=== PATIENT | female | born 1975 | race Caucasian/White ===

== ENCOUNTER 2017-05-27 00:21 | Emergency (ER) | payer OTHER ==
[2017-05-27] MEDS ORDERED: TORAdol 30 mg Injection IM ONE (00:29)
[2017-05-27] MEDS ORDERED: Vistaril 50 MG/ML IM ONE ×2 (00:30→00:34)
[2017-05-27] MEDS ORDERED: TORAdol 30 mg Injection ONE (00:34)
--- NOTE | 2017-05-27 00:51 | ERPHSYRPT ---
- History of Present Illness Time Seen by Provider: 05/27/17 00:23 Source: patient Patient Subjective Stated Complaint: PT REPORTS PICKING UP A BAG OF TRASH 2 DAYS AGO-REPORTS SEVERE PAIN IN LOW BACK-PAIN RADIATING TO RIGHT LEG-REPORTS CHRONIC BACK PROBLEMS Triage Nursing Assessment: PT PINK WARM ET [id number] EASY-NO BRUISING OR ABRASIONS NOTED TO BACK-PT DENIES FALL-REPROTS VOMITING FROM THE PAIN Physician History: CC: back pain hx: 41 y/o patient of Dr Collins with prior low back suergery remotely per Dr Dunn. She h twisted her low back lifting a trash bag two days ago. Took robaxin a few hours ago but pain worse and severe so came to ER after work at the [employer]. Allergic to flexeril. She has chronic tingling in legs. Worse low back pain. Stopped her norco a few months ago herself. Has used ibuprofen. No abd pain. Normal urination. Pain severe and worse with movement. No fever. No hx of cancer. Timing/Duration: day(s) (2) Back Pain Location: lumbar spine Severity of Pain-Max: severe Severity of Pain-Current: severe Allergies/Adverse Reactions: amoxicillin trihydrate [From Augmentin] Allergy (Verified 05/27/17 00:31) cefaclor [From Ceclor] Allergy (Verified 05/27/17 00:31) cyclobenzaprine HCl [From Flexeril] Allergy (Verified 05/27/17 00:31) escitalopram oxalate [From Lexapro] Allergy (Verified 05/27/17 00:31) fluoxetine HCl [From Prozac] Allergy (Verified 05/27/17 00:31) levofloxacin [From Levaquin] Allergy (Verified 05/27/17 00:31) potassium clavula *RETIRED-01/09/13 [From Augmentin] Allergy (Verified 05/27/17 00:31) Home Medications: AMITRIPTYLINE HCL 50 mg Tab [AMITRIPTYLINE HCL 50 mg Tablet] 50 mg PO HS [History] Fluticasone Propionate [Flonase NASAL] 16 gm NS HS 10/06/16 [History] Gabapentin 600 mg PO TID 10/06/16 [History] Hydrochlorothiazide 12.5 mg PO HS 10/06/16 [History] Lamotrigine 25 mg PO BID 10/06/16 [History] Methocarbamol [Robaxin-750] 750 mg PO .UNKNOWN 10/06/16 [History] Potassium Chloride 10 Meq Tab* [Klor Con 10 MEQ] 10 meq PO HS 10/06/16 [ History] Ropinirole HCl 1 mg PO HS 10/06/16 [History] Hx Tetanus, Diphtheria Vaccination/Date Given: Yes Hx Influenza Vaccination/Date Given: No Hx Pneumococcal Vaccination/Date Given: No Immunizations Up to Date: Yes - Review of Systems Constitutional: No Fever Eyes: No Symptoms Ears, Nose, & Throat: No Symptoms Respiratory: No Dyspnea Cardiac: No Chest Pain Abdominal/Gastrointestinal: Vomiting (X1 due to pain), No Abdominal Pain Genitourinary Symptoms: No Dysuria, No Musculoskeletal: Back Pain Neurological: Parasthesia (legs chronic), No Focal Weakness All Other Systems: Reviewed and Negative - Past Medical History Pertinent Past Medical History: Yes Neurological History: No Pertinent History ENT History: No Pertinent History Cardiac History: No Pertinent History Respiratory History: No Pertinent History Endocrine Medical History: No Pertinent History Musculoskeletal History: Other Psycho-Social History: Depression Female Reproductive Disorders: Other Other Medical History: BACK SURG - Past Surgical History Past Surgical History: Yes Neuro Surgical History: No Pertinent History Cardiac: No Pertinent History Respiratory: No Pertinent History Gastrointestinal: Cholecystectomy Genitourinary: No Pertinent History Musculoskeletal: Other Female Surgical History: Tubal Ligation Other Surgical History: BACK SURGERY - Social History Smoking Status: Never smoker Exposure to second hand smoke: No Drug Use: none Patient Lives Alone: No - Female History Hx Last Menstrual Period: ABLASION Hx Now: No - Nursing Vital Signs Nursing Vital Signs: Initial Vital Signs Temperature 97.9 F 05/27/17 00:24 Pulse Rate 90 05/27/17 00:24 Respiratory Rate 20 05/27/17 00:24 Blood Pressure 121/89 05/27/17 00:24 O2 Sat by Pulse Oximetry 98 05/27/17 00:24 Pain Scale Pain Intensity 8 - Physical Exam General Appearance: alert Eye Exam: PERRL/EOMI Ears, Nose, Throat Exam: moist mucous membranes Neck Exam: normal inspection, supple Respiratory Exam: normal breath sounds Cardiovascular Exam: regular rate/rhythm Gastrointestinal Exam: soft, No tenderness, No distention Back Exam: normal inspection (healed scar. Diffuse discomfort.) Extremity Exam: normal inspection, normal range of motion Neurologic Exam: alert, oriented x 3, cooperative, sensation nml, No motor deficits Skin Exam: warm, dry, No rash SpO2 Interpretation: normal SpO2: 98 Oxygen Delivery: Room Air - Course Nursing assessment & vital signs reviewed: Yes Ordered Tests: Medication Summary Discontinued Medications Generic Name Dose Route Start Last Admin Trade Name Freq PRN Reason Stop Dose Admin Hydroxyzine HCl 50 mg 05/27/17 00:30 05/27/17 00:37 Vistaril 50 Mg/Ml IM 05/27/17 00:31 50 mg STAT ONE Administration Hydroxyzine HCl Confirm 05/27/17 00:34 Vistaril 50 Mg/Ml Administered 05/27/17 00:35 Dose 50 mg IM .STK-MED ONE Ketorolac Tromethamine 60 mg 05/27/17 00:29 05/27/17 00:35 Toradol 30 Mg Injection IM 05/27/17 00:30 60 mg STAT ONE Administration Ketorolac Tromethamine Confirm 05/27/17 00:34 Toradol 30 Mg Injection Administered 05/27/17 00:35 Dose 60 mg .ROUTE .STK-MED ONE - Progress Progress Note: 05/27/17 00:49 Toradol and vistaril given here. She has robaxin at home. Will change to naproxen instead of motrin. Advised follow up. Counseled pt/family regarding: diagnosis, need for follow-up - Departure Time of Disposition: 00:49 Departure Disposition: Home Clinical Impression: Low back sprain Qualifiers: Encounter type: initial encounter Qualified Code(s): S33.9XXA - Sprain of unspecified parts of lumbar spine and pelvis, initial encounter Condition: Stable Critical Care Time: No Referrals: BASSAM COLLINS MD [Primary Care Provider] - Instructions: Low Back Pain Additional Instructions: BACK INJURY 1. May apply moist heat frequently for relief of pain. Take care not to burn the skin. Do not use heat for more than 30 minutes at a time. 2. Try to sleep on a firm bed, flat on your back. 3. If no improvement is noticed in 2-3 days, follow up with your family physician. 4. If you notice any numbness, tingling, weakness, or problems with your bowel or bladder, you should call your family physician or return to the emergency department. Stop ibuprofen and start naproxen in AM. Continue your robaxin. No driving tonite. Follow up Monday with Dr Collins. Prescriptions: Naproxen 500 mg [Naprosyn 500 MG] 500 mg PO BID #20 tablet
[2017-05-27 01:14] VITALS: BP 113/69; PULSE 77; O2SAT 100
== END 2017-05-27 01:15 | disposition home or self-care (01) ==
LOC: ED 00:21
DX: S33.9XXA Sprain of unspecified parts of lumbar spine and pelvis, initial encounter (principal); X50.0XXA Overexertion from strenuous movement or load, initial encounter; Y92.524 Gas station as the place of occurrence of the external cause; Y99.0 Civilian activity done for income or pay
CPT/HCPCS: 96372; 99284; J1885; J3410

== ENCOUNTER 2019-03-26 12:49 | Emergency (ER) | payer OTHER ==
[2019-03-26] MEDS ORDERED: TORAdol 30 mg Injection IM ONE (13:24)
--- NOTE | 2019-03-26 13:27 | ERPHSYRPT ---
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 states her right arm is tingling Physician History: 43-year-old white female arrives with complaint of pain posterior neck worse with movement symptoms since Monday, 4 days ago. Patient states she does not remember any definite injury she states she hurts when she moves and turns her neck she states she feels popping in her neck at times. Past medical history includes degenerative arthritis, chronic back pain Past surgical history includes cholecystectomy, tubal ligation, back surgery Timing/Duration: day(s) (4 days) Severity: moderate Modifying Factors: Improves With: movement Associated Symptoms: No nausea, No vomiting, No abdominal pain, No shortness of breath, No heartburn, No diaphoresis, No cough, No chills, No chest pain, No fever, No headaches, No loss of appetite, No malaise, No rash, No syncope, No seizure, No weakness Allergies/Adverse Reactions: amoxicillin [From Augmentin] Allergy (Verified 03/26/19 13:12) cefaclor [From Ceclor] Allergy (Verified 03/26/19 13:12) clavulanic acid [From Augmentin] Allergy (Verified 03/26/19 13:12) cyclobenzaprine [From Flexeril] Allergy (Verified 03/26/19 13:12) levofloxacin [From Levaquin] Allergy (Verified 03/26/19 13:12) fluoxetine [From Prozac] Adverse Reaction (Verified 03/26/19 13:12) Home Medications: Amitriptyline HCl 75 mg DAILY 03/26/19 [History] Gabapentin 300 mg TID 03/26/19 [History] Ropinirole HCl 2 mg DAILY 03/26/19 [History] lamoTRIgine [Lamotrigine] 25 mg DAILY 03/26/19 [History] Hx Tetanus, Diphtheria Vaccination/Date Given: No Hx Influenza Vaccination/Date Given: No Hx Pneumococcal Vaccination/Date Given: No Immunizations Up to Date: Yes - Review of Systems Constitutional: No Fever, No Chills Eyes: No Symptoms Ears, Nose, & Throat: No Symptoms Respiratory: No Cough, No Dyspnea Cardiac: No Chest Pain, No Edema, No Syncope Abdominal/Gastrointestinal: No Abdominal Pain, No Nausea, No Vomiting, No Diarrhea Genitourinary Symptoms: No Dysuria Musculoskeletal: Neck Pain (posterior neck pain worse with moving feels like she has popping in her neck) Skin: No Rash Neurological: No Dizziness, No Focal Weakness, No Sensory Changes Psychological: No Symptoms Endocrine: No Symptoms All Other Systems: Reviewed and Negative - Past Medical History Pertinent Past Medical History: Yes Musculoskeletal History: Arthritis, Degenerative Disk Disease Other Medical History: chronic adriana pain - Past Surgical History Past Surgical History: Yes Gastrointestinal: Cholecystectomy Musculoskeletal: Other Female Surgical History: Tubal Ligation Other Surgical History: back surgery - Social History Smoking Status: Never smoker Exposure to second hand smoke: No Drug Use: none Patient Lives Alone: No - Female History Hx Last Menstrual Period: irregular Hx Now: No - Nursing Vital Signs Nursing Vital Signs: Initial Vital Signs Temperature 97 F 03/26/19 13:05 Pulse Rate 93 H 03/26/19 13:05 Respiratory Rate 16 03/26/19 13:05 Blood Pressure 117/86 03/26/19 13:05 O2 Sat by Pulse Oximetry 98 03/26/19 13:05 Pain Scale Pain Intensity 5 - Physical Exam General Appearance: mild distress, alert Eye Exam: PERRL/EOMI, eyes nml inspection Neck Exam: other (neck tender with palpation posteriorly, ddecreased range of motion neck secondary to pain) Respiratory Exam: normal breath sounds, lungs clear, No respiratory distress Cardiovascular Exam: regular rate/rhythm, normal heart sounds, normal peripheral pulses, capillary refill <2 sec Gastrointestinal/Abdomen Exam: soft, normal bowel sounds, No tenderness, No mass Back Exam: normal inspection, normal range of motion, No CVA tenderness, No vertebral tenderness Extremity Exam: normal inspection, normal range of motion, pelvis stable Neurologic Exam: alert, oriented x 3, cooperative, flatwork washer II-XII nml as tested, normal mood/affect, nml cerebellar function, nml station & gait, sensation nml, No motor deficits Skin Exam: normal color, warm, dry, No rash SpO2 Interpretation: normal (98I'm not worried about her pulses long as her pressure is good%) SpO2: 98 - Course Nursing assessment & vital signs reviewed: Yes - Radiology Exams C-Spine X-ray Interpretation: Discussed w/ radiologist (cervical spine x-ray:impression : 1. No acute cervical spine fracture, AP subluxation, or prevertebral soft tissue swelling is seen. 2. Mild to moderate posterior vertebral endplate spurring at both C5-C6 and C6-C7. Otherwise a cervical airspace Heights appear fairly maintained. No other significant plain film cervical spine abnormality is seen.) Ordered Tests: Active Orders 24 hr Category Date Time Status Cervical Collar Application STAT Care 03/26/19 14:58 Active CERVICAL SPINE (2 OR 3 VIEW) Stat Exams 03/26/19 13:24 Completed Medication Summary Discontinued Medications Generic Name Dose Route Start Last Admin Trade Name Freq PRN Reason Stop Dose Admin Ketorolac Tromethamine 60 mg 03/26/19 13:24 03/26/19 13:39 Toradol 30 Mg Injection IM 03/26/19 13:25 60 mg STAT ONE Administration Ketorolac Tromethamine Confirm 03/26/19 13:38 Toradol 30 Mg Injection Administered 03/26/19 13:39 Dose 60 mg .ROUTE .STK-MED ONE - Progress Progress: improved Progress Note: 03/26/19 14:59 Patient states she has minimal improvement with Toradol. Patient appears to be stable. Patient is allergic to cyclobenzaprine. C-spine impression 1. No acute cervical spine fracture, AP subluxation, or prevertebral soft tissue swelling is seen. 2. There is mild to moderate posterior vertebral endplate spurring at both C5-C6 and C6-C7 otherwise a cervical airspace his appeared fairly well maintained. 3. No other significant plain films cervical spine abnormality is seen. Will go ahead and write for Naprosyn for this patient 500 mg twice a day place patient on a soft collar to help prevent spasms. Patient states that she will followup with her neurologist. Will give patient off today and tomorrow from work. - Departure Departure Disposition: Home Clinical Impression: Neck pain Cervical strain Qualifiers: Encounter type: initial encounter Qualified Code(s): S16.1XXA - Strain of muscle, fascia and tendon at neck level, initial encounter Condition: Fair Critical Care Time: No Referrals: KYLE BIRMINGHAM MD [Primary Care Provider] - Instructions: Cervical Muscle Strain (DC) Additional Instructions: Return home. Naprosyn 500 mg orally twice a day with food as needed for pain. Wear soft collar 48-72 hours. Followup with your family doctor or neurologist. Return for acute distress or for severe symptoms. Prescriptions: Naproxen 500 mg [Naprosyn 500 MG] 500 mg PO BIDPRN PRN #10 tablet PRN Reason: Pain
[2019-03-26] MEDS ORDERED: TORAdol 30 mg Injection ONE (13:38)
--- NOTE | 2019-03-26 14:53 | XRAY ---
Exam: 3 view cervical spine series from 03/26/2019. Comparison: None. Indication: 43-year-old female with neck pain. Technique: 2 lateral images, an AP image, and 2 open-mouth odontoid views were obtained. Findings: I see no acute fracture, AP subluxation, or prevertebral soft tissue swelling. The cervical interspace heights are fairly well-maintained. I see mild to moderate posterior vertebral endplate spurring at C5-C6 and C6-C7. The facet joints appear unremarkable. The uncovertebral joints reveal no significant abnormality. No cervical ribs are identified. There is slight convexity of the upper thoracic spine toward the right centered at T1-T2 on the AP image. No other focal bone lesion is seen. Impression: 1. No acute cervical spine fracture, AP subluxation, or prevertebral soft tissue swelling is seen. 2. There is mild to moderate posterior vertebral endplate spurring at both C5-C6 and C6-C7. Otherwise, the cervical interspace heights appear fairly well-maintained. 3. No other significant plain films cervical spine abnormality is seen.
[2019-03-26 15:06] VITALS: BP 113/73; PULSE 65; O2SAT 97
== END 2019-03-26 15:12 | disposition home or self-care (01) ==
LOC: MERGE 12:49 → ED 12:49
DX: M54.2 Cervicalgia (principal); S16.1XXA Strain of muscle, fascia and tendon at neck level, initial encounter
CPT/HCPCS: 72040; 96372; 99284; J1885; L0120

== ENCOUNTER 2020-12-23 13:13 | Day surgery (SDC) | payer OTHER ==
[2020-12-23] MEDS ORDERED: Xylocaine 1% Vial 30 ML PF IJ ONE (13:14)
[2020-12-23] MEDS ORDERED: Depo-Medrol 40 MG/ML IM ONE (13:14)
[2020-12-23] MEDS ORDERED: Sodium Chloride 0.9(Preservative Free) 10 ML IJ ONE (13:14)
[2020-12-23] MEDS ORDERED: Lactated Ringers 1,000 ML IV ONE (13:54)
[2020-12-23] MEDS ORDERED: Ketamine HCl 50 MG/ML ONE (15:10)
[2020-12-23] MEDS ORDERED: DIPRIVAN 200 MG/20 ML IV ONE (15:10)
--- NOTE | 2020-12-23 16:24 | XRAY ---
Indication: Lumbar UTE. Intraoperative fluoroscopy provided for 24 seconds. 2 digital spot images submitted for interpretation demonstrates midline posterior needle tip just posterior to the L4-L5 interspace. Small amount of contrast injected for needle tip placement. Correlate with intraoperative findings/report.
--- NOTE | 2020-12-23 16:41 | XRAY ---
24 seconds fluoroscopy time in surgery for lumbar UTE.
== END 2020-12-23 15:41 | disposition home or self-care (01) ==
LOC: SDC-PAIN 13:13
PROVIDERS: ATTEND Psychiatry & Neurology Pain Medicine
DX: M54.16 Radiculopathy, lumbar region (principal); F41.8 Other specified anxiety disorders; Z79.899 Other long term (current) drug therapy
CPT/HCPCS: 62323; 72100; 77003; 84703; J1030; J2001; J2704; Q9966

== ENCOUNTER 2021-05-12 10:48 | Day surgery (SDC) | payer OTHER ==
[2021-05-12] MEDS ORDERED: Depo-Medrol 40 MG/ML IM ONE (10:49)
[2021-05-12] MEDS ORDERED: Sodium Chloride 0.9(Preservative Free) 10 ML IJ ONE (10:49)
[2021-05-12] MEDS ORDERED: Xylocaine 1% Vial 30 ML PF IJ ONE (10:49)
[2021-05-12] MEDS ORDERED: DIPRIVAN 200 MG/20 ML IV ONE ×3 (12:25→12:43)
[2021-05-12] MEDS ORDERED: Lactated Ringers 1,000 ML IV ONE (14:06)
--- NOTE | 2021-05-12 15:00 | XRAY ---
Indication: Lumbar UTE. Intraoperative fluoroscopy provided for 35 seconds. Single lateral digital spot image submitted for interpretation demonstrates posterior needle tip projecting posterior to L4-L5 interspace. Small amount of contrast injected for needle tip placement. Correlate with intraoperative findings/report.
--- NOTE | 2021-05-12 15:03 | XRAY ---
35 seconds fluoroscopy time in surgery for lumbar UTE.
== END 2021-05-12 13:00 | disposition home or self-care (01) ==
LOC: SDC-PAIN 10:48
PROVIDERS: ATTEND Psychiatry & Neurology Pain Medicine
DX: M54.16 Radiculopathy, lumbar region (principal); Z79.899 Other long term (current) drug therapy
CPT/HCPCS: 62323; 72100; 77003; 84703; J1030; J2001; J2704; Q9966

== ENCOUNTER 2021-06-16 12:39 | Day surgery (SDC) | payer OTHER ==
[2021-06-16] MEDS ORDERED: Depo-Medrol 80 MG/ML IM ONE (12:40)
[2021-06-16] MEDS ORDERED: LIDOCAINE HCL 2% 100 MG/5 ML IJ ONE (12:40)
--- NOTE | 2021-06-16 16:31 | XRAY ---
Indication: Bilateral L4-S1 MBB. Intraoperative fluoroscopy provided for 29 seconds. Single digital spot image submitted for interpretation demonstrates posterior needle tips projecting over the expected left and right L4-S1 nerve roots. Correlate with intraoperative findings/report.
--- NOTE | 2021-06-16 16:31 | XRAY ---
29 seconds of fluoroscopy was used in surgery for a bilateral L4-S1 MBB.
[2021-06-16] MEDS ORDERED: Lactated Ringers 1,000 ML IV ONE (17:28)
== END 2021-06-16 14:46 | disposition home or self-care (01) ==
LOC: SDC-PAIN 12:39
PROVIDERS: ATTEND Psychiatry & Neurology Pain Medicine
DX: M47.816 Spondylosis without myelopathy or radiculopathy, lumbar region (principal); Z79.899 Other long term (current) drug therapy
CPT/HCPCS: 64493; 64494; 72020; 77002; 84703; J1040

== ENCOUNTER 2021-08-18 15:18 | Day surgery (SDC) | payer OTHER ==
[2021-08-18] MEDS ORDERED: Depo-Medrol 40 MG/ML IM ONE (15:19)
[2021-08-18] MEDS ORDERED: BUPIVACAINE 0.5% VIAL IJ ONE (15:19)
[2021-08-18] MEDS ORDERED: Lactated Ringers 1,000 ML IV ONE (16:08)
[2021-08-18] MEDS ORDERED: DIPRIVAN 200 MG/20 ML IV ONE ×2 (17:09→17:18)
--- NOTE | 2021-08-18 22:04 | XRAY ---
Indication: Bilateral L4-S1 MBB. Intraoperative fluoroscopy provided for 43 seconds. Single digital spot image submitted for interpretation demonstrates posterior needle tips projecting over the expected left and right L4-S1 nerve roots. Correlate with intraoperative findings/report.
--- NOTE | 2021-08-19 09:03 | XRAY ---
43 seconds fluoroscopy time in surgery for bilateral L4-S1 MBB.
== END 2021-08-18 17:40 | disposition home or self-care (01) ==
LOC: SDC-PAIN 15:18
PROVIDERS: ATTEND Psychiatry & Neurology Pain Medicine
DX: M47.816 Spondylosis without myelopathy or radiculopathy, lumbar region (principal); F41.9 Anxiety disorder, unspecified; F32.9 Major depressive disorder, single episode, unspecified; Z79.899 Other long term (current) drug therapy
CPT/HCPCS: 64493; 64494; 72020; 77002; 84703; J1030; J2704

== ENCOUNTER 2021-09-02 12:15 | Day surgery (SDC) | payer OTHER ==
[2021-09-02] MEDS ORDERED: Xylocaine 1% Vial 30 ML PF IJ ONE (12:16)
[2021-09-02] MEDS ORDERED: BUPIVACAINE 0.5% VIAL IJ ONE (12:16)
[2021-09-02] MEDS ORDERED: Depo-Medrol 40 MG/ML IM ONE (12:16)
[2021-09-02] MEDS ORDERED: DIPRIVAN 200 MG/20 ML IV ONE ×2 (14:09→14:15)
[2021-09-02] MEDS ORDERED: Ketamine HCl 50 MG/ML ONE (14:15)
[2021-09-02] MEDS ORDERED: Lactated Ringers 1,000 ML IV ONE ×2 (14:24→15:20)
--- NOTE | 2021-09-02 16:32 | XRAY ---
Indication: Left L4-S1 RFA. Intraoperative fluoroscopy provided for 46 seconds. 3 digital spot image submitted for interpretation demonstrates posterior needle tips projecting over the expected left L4-S1 nerve roots. Correlate with intraoperative findings/report.
--- NOTE | 2021-09-02 16:39 | XRAY ---
46 seconds fluoroscopy time in surgery for left L4-S1 RFA.
== END 2021-09-02 14:45 | disposition home or self-care (01) ==
LOC: SDC-PAIN 12:15
PROVIDERS: ATTEND Psychiatry & Neurology Pain Medicine
DX: M47.817 Spondylosis without myelopathy or radiculopathy, lumbosacral region (principal); Z79.899 Other long term (current) drug therapy
CPT/HCPCS: 64635; 64636; 72100; 77002; 84703; J1030; J2001; J2704

== ENCOUNTER 2021-09-08 08:48 | Day surgery (SDC) | payer OTHER ==
[2021-09-08] MEDS ORDERED: Xylocaine 1% Vial 30 ML PF IJ ONE (08:49)
[2021-09-08] MEDS ORDERED: BUPIVACAINE 0.5% VIAL IJ ONE (08:49)
[2021-09-08] MEDS ORDERED: Depo-Medrol 40 MG/ML IM ONE (08:49)
[2021-09-08] MEDS ORDERED: Lactated Ringers 1,000 ML IV ONE (09:22)
[2021-09-08] MEDS ORDERED: DIPRIVAN 200 MG/20 ML IV ONE ×3 (09:44→09:55)
[2021-09-08] MEDS ORDERED: Ketamine HCl 50 MG/ML ONE (09:44)
--- NOTE | 2021-09-08 10:40 | XRAY ---
Indication: Right L4-S1 RFA. Intraoperative fluoroscopy provided for 45 seconds. 3 digital spot image submitted for interpretation demonstrates posterior needle tips projecting over the expected right L4-S1 nerve roots. Correlate with intraoperative findings/report.
--- NOTE | 2021-09-08 10:43 | XRAY ---
45 seconds fluoroscopy time in surgery for right L4-S1 RFA.
== END 2021-09-08 10:25 | disposition home or self-care (01) ==
LOC: SDC-PAIN 08:48
PROVIDERS: ATTEND Psychiatry & Neurology Pain Medicine
DX: M47.816 Spondylosis without myelopathy or radiculopathy, lumbar region (principal); Z79.899 Other long term (current) drug therapy
CPT/HCPCS: 64635; 64636; 72100; 77002; 84703; J1030; J2001; J2704

== ENCOUNTER 2022-01-26 11:42 | Day surgery (SDC) | payer OTHER ==
[2022-01-26] MEDS ORDERED: Depo-Medrol 40 MG/ML IM ONE (11:43)
[2022-01-26] MEDS ORDERED: BUPIVACAINE 0.5% VIAL IJ ONE (11:43)
[2022-01-26] MEDS ORDERED: Pepcid 20 MG VIAL IV ONE ×2 (13:46→13:53)
[2022-01-26] MEDS ORDERED: Reglan 10 MG/2 ML ONE (13:47)
[2022-01-26] MEDS ORDERED: Versed 2 MG/2 ML Injection ONE (13:47)
[2022-01-26] MEDS ORDERED: Lactated Ringers 1,000 ML IV ONE (14:31)
[2022-01-26] MEDS ORDERED: DIPRIVAN 200 MG/20 ML IV ONE ×2 (15:00→15:07)
--- NOTE | 2022-01-26 16:37 | XRAY ---
Indication: Right SI joint and right greater greater trochanter bursa injection. Intraoperative fluoroscopy provided for 53 seconds. 3 digital spot image obtained prone submitted for interpretation demonstrates posterior needle tip projecting over the inferior right SI joint. Second needle tip lateral to the right greater trochanter with small amount of contrast injected for needle tip placement. Correlate with intraoperative findings/report.
--- NOTE | 2022-01-26 17:07 | XRAY ---
53 seconds of fluoroscopy was used in surgery for a right SI joint and right hip greater trochanteric bursa injections.
== END 2022-01-26 15:28 | disposition home or self-care (01) ==
LOC: SDC-PAIN 11:42
PROVIDERS: ATTEND Psychiatry & Neurology Pain Medicine
DX: M46.1 Sacroiliitis, not elsewhere classified (principal); M70.61 Trochanteric bursitis, right hip; Z79.899 Other long term (current) drug therapy
CPT/HCPCS: 20610; 27096; 73502; 77002; 84703; G0260; J1030; J2250; J2704; Q9966

== ENCOUNTER 2022-08-03 10:42 | Day surgery (SDC) | payer OTHER ==
[2022-08-03] MEDS ORDERED: Depo-Medrol 40 MG/ML IM ONE (10:43)
[2022-08-03] MEDS ORDERED: BUPIVACAINE 0.5% VIAL IJ ONE (10:43)
[2022-08-03] MEDS ORDERED: DIPRIVAN 200 MG/20 ML IV ONE ×2 (12:31→12:37)
[2022-08-03] MEDS ORDERED: Lactated Ringers 1,000 ML IV ONE (12:50)
--- NOTE | 2022-08-03 13:21 | XRAY ---
Indication: Right SI joint injection. Intraoperative fluoroscopy provided for 16 seconds. 2 digital spot image submitted for interpretation demonstrates posterior needle tip projecting over the right SI joint. Correlate with intraoperative findings/report.
--- NOTE | 2022-08-03 14:28 | XRAY ---
16 seconds of fluoroscopy was used in surgery for a right SI joint injection.
== END 2022-08-03 13:00 | disposition home or self-care (01) ==
LOC: SDC-PAIN 10:42
PROVIDERS: ATTEND Psychiatry & Neurology Pain Medicine
DX: M46.1 Sacroiliitis, not elsewhere classified (principal)
CPT/HCPCS: 01992; 27096; 72170; 77002; 81025; G0260; J1030; J2704

== ENCOUNTER 2022-11-30 14:32 | Day surgery (SDC) | payer OTHER ==
[2022-11-30] MEDS ORDERED: Depo-Medrol 40 MG/ML IM ONE (14:33)
[2022-11-30] MEDS ORDERED: BUPIVACAINE 0.5% VIAL IJ ONE (14:33)
[2022-11-30] MEDS ORDERED: DIPRIVAN 200 MG/20 ML IV ONE ×2 (16:54→17:03)
[2022-11-30] MEDS ORDERED: Lactated Ringers 1,000 ML IV ONE (17:16)
--- NOTE | 2022-11-30 20:52 | XRAY ---
Indication: Left SI joint and left greater trochanter bursa injection. Intraoperative fluoroscopy provided for 1 minutes 17 seconds. 3 digital spot image obtained prone submitted for interpretation demonstrates needle tip projecting over the left SI joint. Second needle tip lateral to the left greater trochanter with small amount of contrast injected for needle tip placement. Correlate with intraoperative findings/report.
--- NOTE | 2022-12-01 08:42 | XRAY ---
One minute and 17 seconds of fluoroscopy was used in surgery for a left greater trochanteric bursa and left sacroiliac joint injection.
== END 2022-11-30 17:32 | disposition home or self-care (01) ==
LOC: SDC-PAIN 14:32
PROVIDERS: ATTEND Psychiatry & Neurology Pain Medicine
DX: M46.1 Sacroiliitis, not elsewhere classified (principal); M16.12 Unilateral primary osteoarthritis, left hip; Z79.899 Other long term (current) drug therapy
CPT/HCPCS: 01992; 20610; 27096; 73502; 77002; 81025; G0260; J1030; J2704; Q9966